=== PATIENT | female | born 1995 | race Caucasian/White ===

== ENCOUNTER 2016-08-05 21:23 | Inpatient (IN) | payer OTHER ==
[~2016-08-05] VITALS: Ht 157.5 cm; Wt 67.6 kg
[2016-08-05 21:36] LABS: BASOPHIL COUNT 0.1 K/uL (0-0.1); EOSINOPHIL (%) 1.1 % (0-5); EOSINOPHIL COUNT 0.1 K/uL (0-0.3); HEMATOCRIT 38.9 % (36.0-46.0); IMMATURE GRANULOCYTE COUNT 0.1 K/uL; INSTRUMENT ABS NEUTROPHIL CT 9.2 K/uL; LYMPHOCYTE COUNT 2.4 K/uL (1.0-2.8); MCH 29.8 PG (29.0-34.0); MCHC 33.4 G/DL (30.0-36.0); MCV 89.2 FL (83-99); MEAN PLAT.VOLUME 11.2 uM^3 (9.5-12.4); MONOCYTE (%) 4.3 % (3-12); MONOCYTE COUNT 0.5 K/uL (0-0.8); NEUTROPHIL (%) 74.2 % (45-76); NEUTROPHIL COUNT 9.2 K/uL (1.8-6.4); PLATELET COUNT 246 K/uL (156-360); RBC DIS.WIDTH-CV 12.5 % (11.8-14.6); RBC DIS.WIDTH-SD 41.1 % (39-53); RED BLOOD COUNT 4.36 M/uL (3.80-5.20); WHITE BLOOD COUNT 12.4 K/uL (4.1-10.2)
[2016-08-05 21:45] LABS: AMYLASE 49 IU/L (1-118); CHLORIDE 109 mEq/L (99-109)
[2016-08-05 21:46] LABS: POTASSIUM 3.6 mEq/L (3.7-5.4); SODIUM 140 mEq/L (136-147)
[2016-08-05 21:47] LABS: GLUCOSE 119 mg/dL (70-99)
[2016-08-05 21:49] LABS: ANION GAP 10 MEQ/L (2-14)
[2016-08-05 21:50] LABS: SERUM ETHYL ALCOHOL < 10 mg/dL
[2016-08-05 21:51] LABS: GFR ESTIMATE (CALCULATED) > 59 mL/min/
[2016-08-05 21:52] LABS: UREA NITROGEN (BUN) 11 mg/dL (9-23)
[2016-08-05 21:54] LABS: LIPASE 38 U/L (1.0-51.0)
[2016-08-05 22:00] LABS: QUANTITATIVE HCG < 4.0 MIU/ML
[2016-08-05 22:08] LABS: TROP-I INTERPRETATION NEGATIVE; TROPONIN-I < 0.01 ng/mL (0.0-0.30)
[2016-08-06] MEDS ORDERED: ATIVAN1 MG PO (00:09)
[2016-08-06] MEDS ORDERED: NEXPLANON68 MG SC (00:10)
[2016-08-06 01:34] LABS: ADD MIUA? NO; BILIRUBIN NEGATIVE; BLOOD NEGATIVE; COLOR STRAW ((YELLOW)); GLUCOSE (STRIP) NEGATIVE; KETONES 5; LEUKOCYTES NEGATIVE; NITRITE NEGATIVE; PROTEIN (STRIP) NEGATIVE; UCUL ADDED? NO; UROBILINOGEN 0.2 MG/DL (0.2-1.0)
[2016-08-06 01:44] LABS: AMPHETAMINE NEGATIVE (500 ng/mL); BARBITURATES NEGATIVE (200 ng/mL); BENZODIAZEPINES NEGATIVE (150 ng/mL); COCAINE NEGATIVE (150 ng/mL); INTERNAL CONTROLS VALID? YES; METHADONE NEGATIVE (200 ng/mL); METHAMPHETAMINE NEGATIVE (500 ng/mL); OPIATES (MORPHINE) NEGATIVE (100 ng/mL); OXYCODONE NEGATIVE (100 ng/mL); PHENCYCLIDINE NEGATIVE (25 ng/mL); PROPOXYPHENE NEGATIVE (300 ng/mL); THC CANNABINOIDS NEGATIVE (50 ng/mL); TRICYCLIC ANTIDEPRESSANTS NEGATIVE (300 ng/mL)
[2016-08-06 03:24] VITALS: BP 117/59
[2016-08-06 06:54] LABS: HEMATOCRIT 35.6 % (36.0-46.0); MCH 29.7 PG (29.0-34.0); MCHC 32.6 G/DL (30.0-36.0); MCV 91.3 FL (83-99); MEAN PLAT.VOLUME 11.5 uM^3 (9.5-12.4); PLATELET COUNT 210 K/uL (156-360); RBC DIS.WIDTH-CV 12.6 % (11.8-14.6); RBC DIS.WIDTH-SD 42.1 % (39-53); WHITE BLOOD COUNT 13.7 K/uL (4.1-10.2)
[2016-08-06 07:11] LABS: ANION GAP 6 MEQ/L (2-14); CHLORIDE 109 MEQ/L (99-109); POTASSIUM 4.3 MEQ/L (3.7-5.4); SAMPLE HEMOLYSIS CHECK 0; SAMPLE ICTERIC CHECK 0; SAMPLE LIPEMIA CHECK 0; SODIUM 139 MEQ/L (136-147)
[2016-08-06 07:17] LABS: ALKALINE PHOSPHATASE 70 IU/L (3-129); GFR ESTIMATE (CALCULATED) > 59 mL/min/; GLUCOSE 104 mg/dL (70-99); UREA NITROGEN (BUN) 9 mg/dL (9-23)
[2016-08-06 08:13] VITALS: BP 106/56
[2016-08-06 12:14] VITALS: BP 118/62
[2016-08-06 16:24] VITALS: BP 112/65
[2016-08-06 19:42] VITALS: BP 111/54
[2016-08-07 00:56] VITALS: BP 114/56
[2016-08-07 03:41] VITALS: BP 120/65
[2016-08-07 08:21] VITALS: BP 158/90
[2016-08-07 11:53] VITALS: BP 121/74
[2016-08-07 15:46] VITALS: BP 121/74
[2016-08-07 20:15] VITALS: BP 118/68
[2016-08-08 00:01] VITALS: BP 134/68
[2016-08-08 04:00] VITALS: BP 127/78
[2016-08-08 08:08] VITALS: BP 136/72
[2016-08-08] MEDS ORDERED: ENDOCET 5-3251 EACH PO (09:42)
[2016-08-08 10:36] VITALS: BP 152/86
== END 2016-08-08 17:20 | disposition home or self-care (01) | DRG 184 ==
LOC: EME 21:23 → 3EAST 23:58 → EDOF 23:58 → 3EAST 08-06 03:14
PROVIDERS: Emergency Medicine; Surgery
DX: S22.41XA Multiple fractures of ribs, right side, initial encounter for closed fracture (principal); S27.329A Contusion of lung, unspecified, initial encounter; S06.0X9A Concussion with loss of consciousness of unspecified duration, initial encounter; S27.0XXA Traumatic pneumothorax, initial encounter; F12.90 Cannabis use, unspecified, uncomplicated; F41.9 Anxiety disorder, unspecified; R32 Unspecified urinary incontinence; S01.411A Laceration without foreign body of right cheek and temporomandibular area, initial encounter; S42.021A Displaced fracture of shaft of right clavicle, initial encounter for closed fracture; V43.62XA Car passenger injured in collision with other type car in traffic accident, initial encounter; Y92.410 Unspecified street and highway as the place of occurrence of the external cause; M25.512 Pain in left shoulder; R41.3 Other amnesia
CPT/HCPCS: 70450; 70486; 71010; 71260; 72125; 72129; 72132; 73000; 73030; 73060; 74177; 80048; 80053; 81003; 82150; 83690; 84484; 84702; 85025; 85027; 86900; 86901; 90832; 93005; 99281; 99285; G0480; J1170; J1650; J1885; J2060; J2405; J3010; J7120

== ENCOUNTER 2016-09-05 12:55 | Day surgery (SDC) | payer OTHER ==
[~2016-09-05] VITALS: Ht 157.5 cm; Wt 63.0 kg
[~2016-09-05 12:55] MED LIST: ADVIL200 MG PO; ATIVAN1 MG PO; ENDOCET 5-3251 EACH PO; NEXPLANON68 MG SC
[2016-09-05 13:16] VITALS: BP 114/61
[2016-09-05 22:04] VITALS: BP 98/53
[2016-09-06 04:32] VITALS: BP 110/58
[2016-09-06 07:51] VITALS: BP 121/63
[2016-09-06 10:59] LABS: INTERNAL CONTROL VALID? YES
[2016-09-06 11:32] VITALS: BP 128/66
[2016-09-06] MEDS ORDERED: PERCOCET 5/31 TABLET PO (13:07)
[2016-09-06] MEDS ORDERED: ENDOCET 5-3251 EACH PO (13:10)
[2016-09-06] MEDS ORDERED: OXYCODONE-APAP1 EACH PO (13:12)
== END 2016-09-06 15:26 | disposition home or self-care (01) ==
LOC: SDC 12:55 → 2SOUTH 17:30 → 3EAST 17:30 → 2SOUTH 17:30 → 3EAST 21:24
PROVIDERS: Orthopaedic Surgery
PROC: 0PS904Z Reposition Right Clavicle with Internal Fixation Device, Open Approach (ICD-10-PCS; principal; 2016-09-05)
DX: S42.021A Displaced fracture of shaft of right clavicle, initial encounter for closed fracture (principal); F41.9 Anxiety disorder, unspecified; K21.9 Gastro-esophageal reflux disease without esophagitis; V49.9XXA Car occupant (driver) (passenger) injured in unspecified traffic accident, initial encounter; Y92.410 Unspecified street and highway as the place of occurrence of the external cause; R94.31 Abnormal electrocardiogram [ECG] [EKG]
CPT/HCPCS: 73000; 76000; 84703; C1713; G0378; J0690; J1170; J2250; J2405; J2765; J3010; J7120